=== PATIENT | female | born 1935 | race Caucasian/White ===

== ENCOUNTER → 2016-11-14 | Outpatient (CLI) | payer OTHER | END | disposition home or self-care (01) | LOC: C.LAB1850 16:26 | PROVIDERS: ATTEND Internal Medicine | DX: H81.09 Meniere's disease, unspecified ear (principal) ==

== ENCOUNTER → 2017-06-23 | Outpatient (CLI) | payer OTHER ==
[2017-06-23 13:27] LABS: BASO % 0.6 %; BASO ABS # 0.06 K/uL (0-0.2); EOS % 2.9 %; EOS ABS # 0.28 K/uL (0-0.5); HEMATOCRIT 44.7 % (37-47); IG# 0.03 K/uL (0.00-0.02); LYMPH % 23.8 %; LYMPH ABS # 2.27 K/uL (1.2-3.4); MEAN CELL VOLUME 94.3 fL (80-100); MEAN CORPUSCULAR HEMOGLOBIN 31.6 pg (25-34); MEAN CORPUSCULAR HGB CONC 33.6 g/dl (32-36); MEAN PLATELET VOLUME 9.6 fL (7.4-10.4); MONO % 10.2 %; MONO ABS # 0.97 K/uL (0.11-0.59); NEUT % 62.2 %; NEUT ABS # 5.91 K/uL (1.4-6.5); PLATELET COUNT 241 K/uL (130-400); RED CELL DISTRIBUTION WIDTH CV 14.3 % (11.5-14.5); RED CELL DISTRIBUTION WIDTH SD 49.1 fL (36.4-46.3); WHITE BLOOD COUNT 9.52 K/uL (4.8-10.8)
[2017-06-23 13:46] LABS: HEMOGLOBIN A1C 6.1 % (4.5-5.6)
[2017-06-23 14:00] LABS: ALBUMIN 3.9 gm/dl (3.4-5.0); ALT/SGPT 26 U/L (12-78); AST/SGOT 20 U/L (15-37); BLOOD UREA NITROGEN 16 mg/dl (7-18); CALCIUM 9.3 mg/dl (8.5-10.1); CARBON DIOXIDE 29 mmol/L (21-32); CHOLESTEROL 232 mg/dl (0-200); CREATININE 1.16 mg/dl (0.60-1.20); GLUCOSE 95 mg/dl (70-99); POTASSIUM 3.9 mmol/L (3.5-5.1); SODIUM 139 mmol/L (136-145)
[2017-06-23 14:11] LABS: ALKALINE PHOSPHATASE 62 U/L (45-117); LDL CHOLESTEROL CALCULATED 129 mg/dl; TOTAL PROTEIN 7.8 gm/dl (6.4-8.2)
[2017-06-23 15:05] LABS: CREATININE RANDOM URINE 76.4 mg/dl
== END | disposition home or self-care (01) ==
LOC: C.LAB1850 12:33
PROVIDERS: ATTEND Internal Medicine
DX: E11.9 Type 2 diabetes mellitus without complications (principal); I10 Essential (primary) hypertension; E03.9 Hypothyroidism, unspecified

== ENCOUNTER 2018-06-18 09:27 | Observation (INO) ==
--- NOTE | 2018-06-03 12:16 | Anesthesiology Consultation ---
Date of Service June 03, 2018 Assessment & Plan (1) Encounter for pre-operative examination: Chart Review Chart Review: Acceptable Risk for Surgery and Patient seen in Pre Admission Testing Teaching & Discussion Instructed NPO after midnight before surgery, except medications with 15 cc of water. Medication instructions provided according to the PAT guidelines. History Surgery Operation Date: 06/18/18 09:20 Proposed Procedures p Right Breast Modified Radical Mastectomy - Ezio Miller, Height/Weight Height: 5 ft 5 in Weight: 111.2 kg Allergies Allergy/AdvReac Type Severity Reaction Status Date / Time bacitracin Allergy Hives Verified 06/01/18 13:44 [From Triple Antibiotic] hydrocodone Allergy Hives Verified 06/01/18 13:44 neomycin Allergy Hives Verified 06/01/18 13:44 [From Triple Antibiotic] polymyxin B Allergy Hives Verified 06/01/18 13:44 [From Triple Antibiotic] rosuvastatin [From Crestor] Allergy Hives Verified 06/01/18 13:45 tramadol Allergy Hives Verified 06/01/18 13:44 adhesive tape AdvReac Intermediate Rash Unverified 06/01/18 13:42 aspirin AdvReac Intermediate Gastrointestinal Unverified 06/01/18 13:42 Upset blue dye AdvReac Unknown Hives Unverified 06/01/18 13:42 Medications Home Medications Medication Instructions Recorded Confirmed Last Taken diphenhydramine HCl 25 mg PO HS PRN 06/01/18 06/01/18 Unknown levothyroxine 125 mcg PO QAM 06/01/18 06/01/18 Unknown lisinopril 10 mg PO QAM 06/01/18 06/01/18 Unknown meclizine 25 mg PO QAM 06/01/18 06/01/18 Unknown Past Medical History Medical History Hypothyroid Morbid obesity Breast cancer right Depression Hearing deficit Hx of diabetes mellitus No longer treated for, diet controlled. Hypertension Vertigo r/t [place]ie[place] Past Family History Family History Other Family history non-contributory Past Surgical History Surgical History History of cataract surgery Hx of appendectomy Past Anesthesia History No Hx of Anesthesia Complications and No Family Hx of Anesthesia Complications History of PONV No Motion Sickness Screening History of Motion Sickness: No Social History Smoking Status: Never smoker Do You Dip or Chew Tobacco: No Hx Alcohol Use: No Hx Substance Use: No Exercise / Class Metabolic Activity II 4-5 Yardwork/Stairs/Walk up hill (Does full FOS at home multiple times daily without limiting CP or SOB) Review of Systems Pt denies any recent chest pain, shortness of breath, palpitations, cough, fever or URI. Physical Exam Vital Signs BP: 128/78 P: 72bpm SPO2: 96% RA T: 98.2 F R: 16 Constitutional + obese ENMT Mouth: + dental restorations (upper denture) and + edentulous Thyromental Distance: < 3.5 Finger Breadths Mallampati Class: III Neck normal visual inspection, + thick neck and + limited neck extension (mildly) Respiratory normal respiratory effort Auscultation: lungs clear to auscultation bilaterally Cardiovascular Rate/Rhythm: regular rate and regular rhythm Heart Sounds: no murmur Vessels: no carotid bruit Extremities: no edema Testing Electrocardiogram Date: 11/08/17 Findings: + NSR @ (90) Chest X-Ray Date: 11/08/17 Findings: + NAD Laboratory Results Laboratory Tests 05/28/18 05/28/18 14:29 14:29 WBC 7.39 Hgb 14.6 Hct 43.3 Plt Count 201 Sodium 140 Potassium 3.9 Chloride 106 Carbon Dioxide 31 BUN 15 Creatinine 0.96 Glucose 95
--- NOTE | 2018-06-03 12:22 | PAT Medication Instructions ---
Medication Instructions Date of Service June 03, 2018 Home Medications diphenhydramine HCl 25 mg PO HS PRN levothyroxine 125 mcg PO QAM lisinopril 10 mg PO QAM meclizine 25 mg PO QAM DO NOT take the morning of surgery lisinopril 10 mg PO QAM meclizine 25 mg PO QAM Take morning of surgery With a small sip of water, OTHERWISE NOTHING TO EAT OR DRINK AFTER MIDNIGHT: levothyroxine 125 mcg PO QAM meclizine 25 mg PO QAM Take evening before surgery diphenhydramine HCl 25 mg PO HS PRN (if needed) Other Notes If you have any questions please call us at [phone] or [phone] or [phone] or [phone]
[~2018-06-18 09:27] MED LIST: CEFAZOLIN 2000MG 2,000 MG/15 ML SYR IV SCH; LR 15ML/HR IV SCH
[2018-06-18] MEDS ORDERED: fentaNYL citrate 100 MCG/2 ML VIAL ONE ×2 (10:55→12:14)
[2018-06-18] MEDS ORDERED: ePHEDrine sulfate 50 MG/ML AMP IV PRN (11:00)
[2018-06-18] MEDS ORDERED: fentaNYL citrate 100 MCG/2 ML VIAL IV PRN (11:00)
[2018-06-18] MEDS ORDERED: PHENYLEPHRINE 100MCG/ML 5ML SYR IV PRN (11:00)
[2018-06-18] MEDS ORDERED: ONDANSETRON INJ 2 MG/ML 2 ML VIAL IV PRN ×2 (11:00→14:40)
[2018-06-18] MEDS ORDERED: ATROPINE SULFATE 0.1 MG/ML 10ML SYR IV PRN (11:00)
--- NOTE | 2018-06-18 11:39 | History & Physical Bridge Note ---
Date of Service June 18, 2018 History & Physical Bridge Note I have examined the patient, reviewed the History & Physical and in the interval since the performance of the History & Physical I have noted the following changes of clinical significance: no changes noted
[2018-06-18] MEDS ORDERED: DEXAMETHASONE SOD INJ 4 MG/ML VIAL ONE (12:14)
[2018-06-18] MEDS ORDERED: ONDANSETRON INJ 2 MG/ML 2 ML VIAL ONE (12:14)
[2018-06-18] MEDS ORDERED: ROCURONIUM BROMIDE 10 MG/ML 5 ML VIAL ONE (12:14)
[2018-06-18] MEDS ORDERED: LIDOCAINE HCL 2% 2 ML VIAL/AMP(20MG/ML) INFIL ONE (12:14)
[2018-06-18] MEDS ORDERED: PROPOFOL IV EMULSION 10 MG/ML 20 ML VIAL IV ONE (12:14)
[2018-06-18] MEDS ORDERED: TISSEEL FIBRIN SEALANT 10ML TOP ONE (12:17)
[2018-06-18] MEDS ORDERED: ARISTA ABSORBABLE HEMOSTAT 3GM TOP ONE (12:41)
--- NOTE | 2018-06-18 13:17 | Post Operative Brief Note ---
Immediate Post Op Note v1 Date of Surgery June 18, 2018 Pre & Post Diagnosis Operation Date: 06/18/18 11:30 Pre-Op Diagnosis: Right Breast Cancer, Diabetes Procedure Operation Date: 06/18/18 11:30 Actual Procedures p Right Breast Modified Radical Mastectomy(Right) - Ezio Miller DO Surgeon Ezio Miller DO Manager Business Systems thomas Veloz, thomas Peraza Estimated Blood Loss 25 Findings Consistent with Post-Op Diagnosis Drains Cooper Catheter and Eric-Avina Drain (10 flat)
--- NOTE | 2018-06-18 13:22 | Operative Report ---
Post Operative Report Pre & Post Diagnosis Operation Date: 06/18/18 11:30 Pre-Op Diagnosis: Right Breast Cancer, Diabetes Procedure Operation Date: 06/18/18 11:30 Actual Procedures p Right Breast Modified Radical Mastectomy(Right) - Ezio Miller DO Surgeon Ezio Miller DO Chief School Finance Officer thomas Veloz, thomas Peraza Estimated Blood Loss 25 Findings Consistent with Post-Op Diagnosis Specimens right breast/axillary contents Description of Procedure After informed consent was obtained the patient was taken the operating room placed in supine position. After successful intubation the right arm was extended. Entire right upper chest wall upper abdomen right arm and right axilla were sterilely prepped and draped in usual fashion. I began by using a 10 blade scalpel to make a wide ellipse around the breast starting at the sternal edge and coming around into the the axilla. We used cautery to create skin flaps superiorly and inferiorly. We continued to use traction countertraction and cautery to perform the dissection. We created a superior flap up to the clavicle and an inferior flap down to the inframammary fold. We continued working from medial to lateral cauterizing the small blood vessels and tying off the larger ones. Eventually we got into the axilla and continued to dissect deep to the axillary fascia. We continued laterally to the latissimus dorsi and superiorly to the axillary vein. We used primarily blunt dissection in the axilla with small amounts of cautery. We did have anesthesia reversed the paralytic and we encountered very little nerve activity during our dissection. Eventually we were able to get the axillary dissection completed and that specimen was sent with the breast tissue. We did pari the breast such that 2 short sutures marked superior 1 long suture hanson lateral and 2 long sutures marked posterior. We thoroughly irrigated all the raw surfaces. We were able to obtain complete hemostasis. We placed Tisseel sealant as well as Marlin powder on all the raw surfaces to help prevent hematoma and seroma formation. A 10 flat Eric-Avina drain was also placed into the wound bed and brought out through a separate stab incision and secured using 2-0 nylon. The wound was then closed in multiple layers using 0 Vicryl for deep layers 2-0 Vicryl for mid layers and 3-0 Monocryl for skin. Benzoin and Steri-Strips gauze and tape were used for dressing. The patient was awaken extubated and transferred recovery in stable condition. My physician's ortho assistant assisted through the entire case. They help with prepping the patient. They helped with retraction during my dissection as well as with wound closure and dressing placement. I attest to the content of the Intraoperative Record and any orders documented therein. Any exceptions are noted below.
[2018-06-18] MEDS ORDERED: NEOSTIGMINE METHYLSULFATE 5 MG/5 ML SYR ONE (13:37)
[2018-06-18] MEDS ORDERED: GLYCOPYRROLATE 0.2 MG/ML VIAL ONE (13:37)
--- NOTE | 2018-06-18 14:20 | Anesthesiology Progress Note ---
Date of Service June 18, 2018 Anesthesia Post Procedure Vital Signs Vital Signs: Temp Pulse Pulse Resp BP BP Pulse Ox 06/18/18 14:10 60 18 187/78 H 100 06/18/18 14:00 60 18 178/67 H 100 06/18/18 13:50 60 18 165/89 H 100 06/18/18 13:41 36.5 C 73 18 169/79 H 100 06/18/18 09:54 37.2 C 88 20 189/88 H 97 Notes Mental Status: alert / awake / arousable Patient Amnestic to Procedure: Yes Nausea / Vomiting: adequately controlled Pain: adequately controlled Airway Patency, RR, SpO2: stable & adequate BP & HR: stable & adequate Hydration State: stable & adequate Anesthetic Complications: no major complications apparent Notes: Doing well. BP at baseline. VSS.
[2018-06-18] MEDS ORDERED: HYDROmorphone INJ 0.5 MG/0.5 ML SYR IV PRN (14:40)
[2018-06-18] MEDS ORDERED: ACETAMINOPHEN 325 MG TAB PO PRN (14:40)
[2018-06-18] MEDS: LACTATED RINGER'S 1,000 ML IV SCH (15:50)
[2018-06-19] MEDS ORDERED: LEVOTHYROXINE SODIUM 125 MCG TABLET PO SCH (06:30)
--- NOTE | 2018-06-19 07:49 | Anesthesiology Progress Note ---
Date of Service June 19, 2018 Anesthesia Post Procedure Vital Signs Vital Signs: Temp Pulse Pulse Resp BP BP Pulse Ox 06/19/18 07:29 36.7 C 71 18 123/71 93 06/19/18 04:07 37 C 70 16 130/71 93 06/18/18 23:22 37.4 C 75 16 149/88 H 93 06/18/18 19:38 36.6 C 78 20 158/77 H 98 06/18/18 17:46 37.1 C 71 18 159/76 H 94 06/18/18 16:45 36.5 C 64 20 167/75 H 97 06/18/18 15:45 36.5 C 64 20 169/78 H 94 06/18/18 15:08 36.5 C 64 20 178/83 H 98 06/18/18 14:45 36.8 C 61 18 170/77 H 98 06/18/18 14:30 36.4 C L 60 18 177/71 H 100 06/18/18 14:20 58 L 18 182/77 H 100 06/18/18 14:10 60 18 187/78 H 100 06/18/18 14:00 60 18 178/67 H 100 06/18/18 13:50 60 18 165/89 H 100 06/18/18 13:41 36.5 C 73 18 169/79 H 100 06/18/18 09:54 37.2 C 88 20 189/88 H 97 Pain Intensity Right Chest: Pain Intensity: 1 Notes Mental Status: alert / awake / arousable and participated in evaluation Patient Amnestic to Procedure: Yes Nausea / Vomiting: adequately controlled Pain: adequately controlled Airway Patency, RR, SpO2: stable & adequate BP & HR: stable & adequate Hydration State: stable & adequate Anesthetic Complications: no major complications apparent and Pt Satisfied with anesthetic care
[2018-06-19] MEDS ORDERED: MECLIZINE HCL 25 MG TAB PO SCH (09:00)
[2018-06-19] MEDS ORDERED: LISINOPRIL 10 MG TAB PO SCH (09:00)
[2018-06-19] MEDS: LACTATED RINGER'S 1,000 ML IV SCH (11:00)
--- NOTE | 2018-06-19 12:49 | Surgery Progress Note ---
Date of Service June 19, 2018 Assessment & Plan (1) Breast cancer: pod 1 doing very well wants to go home ok for d/c. instructions given. f/u wed for poss drain removal. Subjective feeling well. denies pain edinson diet Physical Exam Vital Signs (Past 24 Hours): Last Vital Signs Temp 36.7 C 06/19/18 07:29 Pulse 71 06/19/18 07:29 Resp 18 06/19/18 07:29 BP 123/71 06/19/18 07:29 Pulse Ox 93 06/19/18 07:29 Physical Exam: alert/oriented. nad keke serous good ROM with RUE. minimal upper extremity edema b/l
[2018-06-19 12:57] VITALS: BP 140/62; TEMP 98.2; O2SAT 95
[2018-06-19 13:21] VITALS: PULSE 71
--- NOTE | 2018-06-22 10:50 | Discharge Summary ---
Date of Service June 22, 2018 Admission HPI Per Admitting Provider Ms. Oakes is an 82-year-old female who was admitted for observation following scheduled Right Breast modified radical mastectomy with Dr. Miller. Operation Date: 06/18/18 11:30 Pre-Op Diagnosis: Right Breast Cancer, Diabetes Procedure Operation Date: 06/18/18 11:30 Actual Procedures p Right Breast Modified Radical Mastectomy Principal Diagnosis Right Breast Cancer, Diabetes Discharge Data Allergies Allergy/AdvReac Type Severity Reaction Status Date / Time bacitracin Allergy Intermediate Hives Verified 06/18/18 09:51 [From Triple Antibiotic] hydrocodone Allergy Intermediate Hives Verified 06/18/18 09:51 neomycin Allergy Intermediate Hives Verified 06/18/18 09:51 [From Triple Antibiotic] polymyxin B Allergy Intermediate Hives Verified 06/18/18 09:51 [From Triple Antibiotic] rosuvastatin [From Crestor] Allergy Intermediate Hives Verified 06/18/18 09:51 tramadol Allergy Intermediate Hives Verified 06/18/18 09:51 adhesive tape AdvReac Intermediate Rash Verified 06/18/18 09:51 blue dye AdvReac Intermediate Hives Verified 06/18/18 09:51 aspirin AdvReac Mild Gastrointestinal Verified 06/18/18 09:51 Upset Procedures Performed Operation Date: 06/18/18 11:30 Actual Procedures p Right Breast Modified Radical Mastectomy(Right) - Ezio Miller, Hospital Course (1) Breast cancer: Pre-Op Diagnosis:Right Breast Cancer Post-Op Diagnosis- Right Breast Cancer Actual Procedures p Right Breast Modified Radical Mastectomy 10 flat KIM drain placed intraoperatively. POD# 1 doing very well wants to go home ok for d/c. return precautions reviewed. Both verbal and written discharge instructions provided. Patient to follow-up in General Surgery clinic for evaluation and drain removal. All questions answered. Total Time Total Time Spent Total Time Spent (In Minutes): 5 Discharge Plan Discharge Items Patient Disposition: Home - Self-Care Reason For Visit: Right Breast Cancer, Diabetes Discharge Diagnosis: mastectomy Discharge Goals: Decrease discomfort Activity: Per 'Additional Instructions' section Bathing: Keep incision dry Bathing Comment: sponge bath until drain removed Non-emergency contact: Surgeon Call non-emergency contact if: you have any medication questions, your pain is not controlled, you have a fever, your temperature is above 101.5, your wound has increased redness and your wound has increased drainage Follow-up/Referrals: Alice Monroy MD [Primary Care Provider] - Ezio Miller, DO [Surgeon] - (Call to make an appt in 5-7 days) Diet: Regular Addtl Provider Instructions: Empty drain 2-3 times daily, measure & record total drainage for each day You can take Tylenol or ibuprofen as needed for pain Prescriptions: Continued diphenhydramine HCl 25 mg Tablet 25 mg PO HS PRN (Reason: hives) RF: 0 lisinopril 20 mg Tablet 10 mg PO QAM RF: 0 meclizine 25 mg Tablet 25 mg PO QAM RF: 0 levothyroxine 125 mcg Capsule 125 mcg PO QAM RF: 0 Stand-Alone Forms: [facility], [facility] Discharge Orders: Discharge Order (Routine); Ordered 06/19/18 Ordered By: Dom Veloz Jr Admission Data Admit Date/Time: 06/18/18 13:55 Attending Provider: Ezio Miller Admit Provider: Ezio Miller Primary Care Provider: Alice Monroy V. Service: Surgical Services Other Interventions: Discharge Summary Assessment (RN) Last Done: 06/19/18 13:19 DC Date/Time DO NOT enter until pt leaves facility: 06/19/18 14:44
== END 2018-06-19 14:44 | disposition home or self-care (01) ==
LOC: 3N 09:27 → ASU 09:27

== ENCOUNTER 2022-05-04 07:02 | Inpatient (IN) ==
[2022-05-04] MEDS ORDERED: ONDANSETRON INJ 2 MG/ML 2 ML VIAL IV STA (07:07)
[2022-05-04] MEDS ORDERED: SODIUM CHLORIDE 0.9% 500 ML IV SCH (07:15)
[2022-05-04] MEDS ORDERED: CEFEPIME 2,000 MG/20 ML VIAL IV STA (07:21)
--- NOTE | 2022-05-04 07:25 | Emergency Department Note ---
Impression & Plan Hypoxia, Elevated lactic acid level, Weakness, Vomiting ED Provider Note NAME: TORRES COOL AGE: 86 SEX: F : 1935 ARRIVES VIA: Ambulance INFORMANT: [Patient][ems, nursing, family] ED PROVIDER(S): [Kiran Vick MD] CHIEF COMPLAINT: Nausea, weakness HISTORY OF PRESENT ILLNESS: The patient is an 86-year-old female who was somewhat weak yesterday but otherwise okay. This morning, she woke up with increased weakness to the point where she cannot function. She had nausea and vomiting and chills. She denies any cough or congestion or shortness of breath. No chest pain or abdominal pain. No diarrhea or urinary complaints. She was brought by EMS because of her situation. PMHx/PSHx: See Below SOCIAL HISTORY: See Below. PHYSICAL EXAM: GENERAL: Patient is in no acute distress. HEENT: No acute trauma, normocephalic atraumatic, mucous membranes moist, no nasal congestion. NECK: No stridor, no adenopathy, no meningismus, trachea is midline. LUNGS: Clear to auscultation bilaterally, no wheeze, no rhonchi, breath sounds equal. HEART: Without murmurs gallops or rubs, regular rate and rhythm. ABDOMEN: Soft, nontender, bowel sounds positive, no peritonitis. EXTREMITIES: No cyanosis or edema, full range of motion of all the joints without pain or difficulty, no signs for acute trauma. NEUROLOGIC: Oriented x 3, no acute motor or sensory deficits, no focal weakness. SKIN: No rash, no jaundice, no diaphoresis. DIFFERENTIAL DIAGNOSIS: Sepsis or bacteremia, UTI, pneumonia, dehydration, electrolyte imbalance, foodborne or viral illness, COVID-19, influenza, among others. EMERGENCY DEPARTMENT COURSE/PROCEDURES: Prior/Outside records reviewed: EMS documentation. ECG per my interpretation: Indication was weakness. The ECG shows a normal sinus rhythm with a rate of 93. There is some diffuse nonspecific ST change. There is no ST elevation, no PVCs. The QTc is 474. Continuous Cardiac Monitoring per my interpretation: An order was placed for continuous cardiac monitoring. The monitor shows a rate of 91 with normal sinus rhythm. Critical Care Note: I have personally spent 43 minutes of critical care time in the direct management of this patient. This includes bedside care, interpretation of diagnostic studies, and testing, discussion with consultants, patient, and family members, and other required patient management activities. This 43 minutes is in excess of all separately billable procedures. MEDICAL DECISION MAKING: There is no leukocytosis or concerning anemia. There is a normal platelet count. No renal failure. Lactic acid level was elevated consistent with potential dehydration and/or sepsis. Magnesium was low at 1.6. There was no liver enzyme elevation. The patient's TSH was high however, the T4 was normal. Urinalysis did not show obvious infection. COVID, influenza and RSV test were negative. Chest x-ray per my review did not show pneumonia or CHF. On exam, the patient appeared a bit washed out and weak. She became hypoxic during her ED stay and was requiring O2 supplementation. She had no complaints of chest or abdominal pain. Patient received IV saline, 1.5 L. She was given IV Zofran for nausea. She received IV magnesium. She was given IV cefepime as empiric antibiotic coverage. Patient presents with vomiting. She became hypoxic here in the ED so aspiration was a concern. She has an elevated lactic acid level. Certainly, sepsis is a consideration although I currently have no obvious source. I do think the patient requires a hospital stay. I spoke with case management, I spoke with the family, the on-call hospitalist was consulted DISPOSITION: Patient's findings and presentation warrant a hospital stay. Past Med/Surg History Medical History Breast cancer right Depression Hearing deficit Hx of diabetes mellitus No longer treated for, diet controlled. Hypertension Hypothyroid Morbid obesity Vertigo r/t [place] Surgical History History of cataract surgery Hx of appendectomy Hx of mastectomy (06/18/18) Family History Father No problems noted. Mother No problems noted. Sister Age: 89 Breast cancer Brother Heart disease Cardiac disorder Son Age: 69 Primary cancer of tonsil Heart disease Daughter Age: 64 Diabetes Denies family history of Ovarian cancer Prostate cancer Colorectal cancer Social History Smoking Status: Never smoker Second Hand Exposure: No; Hx Alcohol Use: No Hx Substance Use: No Preferred Language: Bulgarian Communication Ability: Effective Visual Impairment: No Limitations Hearing Ability: Hard of Hearing [employer] Required: No Beliefs That Will Affect Care: None marital status: Current Living Situation: Family current occupational status: retired Feels Safe at Home: Yes Physical Activity Frequency: 1-2 Times per Week Seatbelt Use: always Assistive Devices: Cane and Walker Allergies Allergies Allergy/AdvReac Type Severity Reaction Status Date / Time bacitracin Allergy Intermediate Hives Verified 05/04/22 09:20 [From Triple Antibiotic] hydrocodone Allergy Intermediate Hives Verified 05/04/22 09:20 neomycin Allergy Intermediate Hives Verified 05/04/22 09:20 [From Triple Antibiotic] polymyxin B Allergy Intermediate Hives Verified 05/04/22 09:20 [From Triple Antibiotic] rosuvastatin [From Crestor] Allergy Intermediate Hives Verified 05/04/22 09:20 tramadol Allergy Intermediate Hives Verified 05/04/22 09:20 amoxicillin Allergy Mild hives on Verified 05/04/22 09:20 tongue adhesive tape AdvReac Intermediate Rash Verified 05/04/22 09:20 blue dye AdvReac Intermediate Hives Verified 05/04/22 09:20 aspirin AdvReac Mild Gastrointestinal Verified 05/04/22 09:20 Upset acetaminophen AdvReac Verified 01/04/22 11:07 diclofenac [From Voltaren] AdvReac Verified 01/04/22 11:07 NSAIDS (Non-Steroidal AdvReac Verified 01/04/22 11:07 Anti-Inflamma Home Meds Home Medications Medication Instructions Recorded Confirmed diphenhydramine HCl 25 mg tablet 25 mg PO BID PRN hives 06/01/18 05/04/22 vitamin E (dl, acetate) 90 mg (200 90 mg PO BID 01/04/22 05/04/22 unit) capsule meclizine 25 mg tablet 25 mg PO QAM 05/04/22 05/04/22 metformin 500 mg tablet,extended 1,000 mg PO BID 05/04/22 05/04/22 release 24 hr Previous Rx's Medication Instructions Recorded blood-glucose meter ([facility] [facility] 911Touch #1 ea 08/31/21 Ultra2 Meter kit) lancets 30 gauge (OneTouch [employer] #100 ea 08/31/21 Lancets) Oxygen Home #1 ea 09/21/21 amlodipine 2.5 mg tablet 2.5 mg PO DAILY #90 tabs 09/28/21 anastrozole 1 mg tablet 1 mg PO DAILY #90 tabs 09/28/21 blood sugar diagnostic (OneTouch #100 ea 10/09/21 Ultra Test strips) cetirizine 10 mg tablet 10 mg PO DAILY #90 tabs 11/15/21 levothyroxine 150 mcg tablet 150 mcg PO DAILY #90 tabs 11/23/21 Results & Data (ED) Vital Signs Vital Signs - 24 hr 05/04/22 07:12 05/04/22 07:24 05/04/22 07:52 Temperature 36.6 C Temperature Source Oral Pulse Rate 91 H 90 Pulse Rate [Apical] 79 Respiratory Rate 20 18 Respiratory Effort / Characteristics Non-Labored Spontaneous Non-Labored Spontaneous Respiratory Depth Normal Normal Blood Pressure 198/112 H Blood Pressure [Left Arm] 176/81 H Blood Pressure Mean 140 Blood Pressure Mean [Left Arm] 112 Pulse Oximetry 94 94 Oxygen Delivery Method Room Air Room Air Sepsis Recent Fever Within 48 Hours No Sepsis New/Unexplained Change in Mental Status No Sepsis Action Taken by Nursing No Action Required Oxygen Flow Rate - Titration Pulse Oximetry Post Tiitration 05/04/22 08:26 05/04/22 08:49 Temperature Temperature Source Pulse Rate Pulse Rate [Apical] 82 Respiratory Rate 18 Respiratory Effort / Characteristics Respiratory Depth Blood Pressure Blood Pressure [Left Arm] 161/75 H Blood Pressure Mean Blood Pressure Mean [Left Arm] 103 Pulse Oximetry 94 84 L Oxygen Delivery Method Room Air Room Air Sepsis Recent Fever Within 48 Hours Sepsis New/Unexplained Change in Mental Status Sepsis Action Taken by Nursing Oxygen Flow Rate - Titration 2 Pulse Oximetry Post Tiitration 97 Home Medications Current Medication List: was personally reviewed by me Laboratory Data Attestation: I reviewed the patient's lab results. 05/04/22 07:16 05/04/22 07:16 Lab Results 05/04/22 05/04/22 05/04/22 Range/Units 07:16 07:16 07:16 WBC 6.43 (4.8-10.8) K/ul RBC 4.62 (4.20-5.40) M/uL Hgb 14.5 (12.0-16.0) g/dl Hct 43.0 (37.0-47.0) % MCV 93.1 (80.0-100.0) fL MCH 31.4 (25.0-34.0) pg MCHC 33.7 (32.0-36.0) g/dL RDW Std Deviation 48.0 H (36.4-46.3) fL RDW Coeff of Thierry 14.1 (11.5-14.5) % Plt Count 167 (130-400) K/uL MPV 9.4 (9.4-12.4) fL Immature Gran % (Auto) 0.5 % Neut % (Auto) 65.1 % Lymph % (Auto) 15.6 % Hale % (Auto) 10.7 % Eos % (Auto) 7.2 % Baso % (Auto) 0.9 % Neut # (Auto) 4.19 (1.40-6.50) K/uL Lymph # (Auto) 1.00 L (1.2-3.4) K/uL Hale # (Auto) 0.69 H (0.11-0.59) K/uL Eos # (Auto) 0.46 (0-0.50) K/uL Baso # (Auto) 0.06 (0-0.2) K/uL Immature Gran # (Auto) 0.03 (0.01-0.20) K/uL Sodium 139 (136-145) mmol/L Potassium 3.9 (3.5-5.1) mmol/L Chloride 101 (98-107) mmol/L Carbon Dioxide 31 (21-32) mmol/L Anion Gap 7 (3-11) BUN 18 (6-23) mg/dl Creatinine 0.87 (0.6-1.2) mg/dl Est Cr Clr Drug Dosing 56.6 ml/min Est GFR ( Amer) 69.4 ml/min Est GFR (Non-Af Amer) 59.9 ml/min BUN/Creatinine Ratio 20.7 H (10-20) Glucose 163 H (70-99(Fasting)) mg/dl Lactate 3.1 H* (0.4-2.0) mmol/L Calcium 9.8 (8.5-10.1) mg/dl Magnesium 1.6 L (1.7-2.4) mg/dl Total Bilirubin 0.4 (0.2-1.0) mg/dl AST 17 (13-39) U/L ALT 14 (7-52) U/L Alkaline Phosphatase 68 (34-104) U/L Troponin I High Sens 4.4 (0-14) pg/ml Total Protein 8.2 (6.0-8.3) gm/dl Albumin 4.2 (3.4-5.0) gm/dl Globulin 4.0 (2.5-4.0) gm/dl Albumin/Globulin Ratio 1.1 (0.9-2) TSH (0.300-4.500) uIu/ml Free T4 (0.61-1.60) ng/dl Urine Color Urine Appearance (Clear) Urine pH (4.5-7.5) Ur Specific Erie (1.000-1.030) Urine Protein (Negative) Urine Glucose (UA) (Negative) Urine Ketones (Negative) Urine Blood (Negative) Urine Nitrite (Negative) Urine Bilirubin (Negative) Urine Urobilinogen (Negative) Ur Leukocyte Esterase (Negative) Urine WBC (Auto) (0-5) /hpf Urine RBC (Auto) (0-4) /hpf U Hyaline Cast (Auto) (0-5) /lpf U Epithel Cells (Auto) (0-5) /lpf Urine Bacteria (Auto) (Negative) SARS-CoV-2 (PCR) (Negative) Influenza Type A (PCR) (Neg) Influenza Type B (PCR) (Neg) RSV (RT-PCR) (Neg) 05/04/22 05/04/22 05/04/22 Range/Units 07:16 07:26 08:00 WBC (4.8-10.8) K/ul RBC (4.20-5.40) M/uL Hgb (12.0-16.0) g/dl Hct (37.0-47.0) % MCV (80.0-100.0) fL MCH (25.0-34.0) pg MCHC (32.0-36.0) g/dL RDW Std Deviation (36.4-46.3) fL RDW Coeff of Thierry (11.5-14.5) % Plt Count (130-400) K/uL MPV (9.4-12.4) fL Immature Gran % (Auto) % Neut % (Auto) % Lymph % (Auto) % Hale % (Auto) % Eos % (Auto) % Baso % (Auto) % Neut # (Auto) (1.40-6.50) K/uL Lymph # (Auto) (1.2-3.4) K/uL Hale # (Auto) (0.11-0.59) K/uL Eos # (Auto) (0-0.50) K/uL Baso # (Auto) (0-0.2) K/uL Immature Gran # (Auto) (0.01-0.20) K/uL Sodium (136-145) mmol/L Potassium (3.5-5.1) mmol/L Chloride (98-107) mmol/L Carbon Dioxide (21-32) mmol/L Anion Gap (3-11) BUN (6-23) mg/dl Creatinine (0.6-1.2) mg/dl Est Cr Clr Drug Dosing ml/min Est GFR ( Amer) ml/min Est GFR (Non-Af Amer) ml/min BUN/Creatinine Ratio (10-20) Glucose (70-99(Fasting)) mg/dl Lactate (0.4-2.0) mmol/L Calcium (8.5-10.1) mg/dl Magnesium (1.7-2.4) mg/dl Total Bilirubin (0.2-1.0) mg/dl AST (13-39) U/L ALT (7-52) U/L Alkaline Phosphatase (34-104) U/L Troponin I High Sens (0-14) pg/ml Total Protein (6.0-8.3) gm/dl Albumin (3.4-5.0) gm/dl Globulin (2.5-4.0) gm/dl Albumin/Globulin Ratio (0.9-2) TSH 18.049 H (0.300-4.500) uIu/ml Free T4 0.97 (0.61-1.60) ng/dl Urine Color Yellow Urine Appearance Clear (Clear) Urine pH 5.0 (4.5-7.5) Ur Specific [place] 1.015 (1.000-1.030) Urine Protein 2+ H (Negative) Urine Glucose (UA) Negative (Negative) Urine Ketones Negative (Negative) Urine Blood 1+ H (Negative) Urine Nitrite Negative (Negative) Urine Bilirubin Negative (Negative) Urine Urobilinogen Negative (Negative) Ur Leukocyte Esterase Negative (Negative) Urine WBC (Auto) 1-5 (0-5) /hpf Urine RBC (Auto) 0-4 (0-4) /hpf U Hyaline Cast (Auto) 1-5 (0-5) /lpf U Epithel Cells (Auto) 10-20 H (0-5) /lpf Urine Bacteria (Auto) Negative (Negative) SARS-CoV-2 (PCR) NEGATIVE (Negative) Influenza Type A (PCR) Negative (Neg) Influenza Type B (PCR) Negative (Neg) RSV (RT-PCR) Negative (Neg) Administered Medications Amlodipine Besylate (Amlodipine Besylate 5 Mg Tab) 5 mg PO DAILY JEREL Stop: 06/03/22 14:29 Last Admin: 05/04/22 14:47 Dose: 5 mg Documented By: RACIEL Discontinued Medications Amlodipine Besylate (Amlodipine Besylate 5 Mg Tab) 2.5 mg PO DAILY JEREL Stop: 06/03/22 10:58 Last Admin: 05/04/22 11:48 Dose: 2.5 mg Documented By: RACIEL Sodium Chloride (Nss) 500 mls @ 999 mls/hr IV .Q31M JEREL Stop: 05/04/22 07:45 Last Infusion: 05/04/22 08:00 Dose: 0 mls/hr Documented By: Admin: 05/04/22 07:25 Dose: 999 mls/hr Documented By: JAMES Cefepime HCl (Maxipime) 2,000 mg in 20 mls @ 5 mls/min IV NOW STA; Protocol Stop: 05/04/22 07:24 Last Admin: 05/04/22 08:04 Dose: 5 mls/min Documented By: JAMES Sodium Chloride (Nss 1000ml) 1,000 mls @ 999 mls/hr IV .Q1H1M ONE Stop: 05/04/22 08:46 Last Infusion: 05/04/22 09:13 Dose: 0 mls/hr Documented By: Admin: 05/04/22 08:09 Dose: 999 mls/hr Documented By: JAMES Magnesium Sulfate/Dextrose (Magnesium Sulfate / D5w) 1 gm in 100 mls @ 100 mls/hr IV NOW STA Stop: 05/04/22 08:54 Last Infusion: 05/04/22 09:23 Dose: 0 mls/hr Documented By: Admin: 05/04/22 08:23 Dose: 100 mls/hr Documented By: JAMES Levothyroxine Sodium (Levothyroxine Sodium 150 Mcg Tablet) 150 mcg PO DAILYBB JEREL Stop: 06/03/22 10:58 Last Admin: 05/04/22 11:48 Dose: 150 mcg Documented By: RACIEL Levothyroxine Sodium (Levothyroxine Sodium 100 Mcg Tablet) 100 mcg PO ONCE ONE Stop: 05/04/22 14:22 Last Admin: 05/04/22 14:47 Dose: 100 mcg Documented By: RACIEL Ondansetron HCl (Ondansetron Inj 2 Mg/Ml 2 Ml Vial) 4 mg IV NOW STA Stop: 05/04/22 07:08 Last Admin: 05/04/22 07:24 Dose: 4 mg Documented By: JAMES Imaging Data Radiologist's Impression: Chest X-Ray 05/04/22 07:07 XR chest 1V portable CLINICAL HISTORY: weakness COMPARISON STUDY: Chest radiograph November 08, 2017. FINDINGS: Lung volumes are at the lower limits of normal. There is no consolidation to suggest pneumonia. Linear left basilar densities favor atelectasis or scarring. There is no pneumothorax or pleural effusion. Cardiac size is normal. Mediastinal contours are normal. There is no evidence for pulmo nary edema. IMPRESSION: No acute cardiopulmonary findings. ACT 112: Negative or not required by law. Electronically signed by: Patricio Jaime M.D. 05/04/2022 7:26 AM Discharge Plan Visit Data Chief Complaint: Nausea Stated Complaint: Vomiting, Weakness ED Provider: Kiran Vick Discharge Problem: Hypoxia, Elevated lactic acid level, Weakness, Vomiting Patient Disposition: Admitted As Inpatient Condition: Fair Discharge Instructions Interventions: ED Discharge Assessment Last Done: 05/04/22 10:14
--- NOTE | 2022-05-04 07:29 | XRay Report ---
XR chest 1V portable CLINICAL HISTORY: weakness COMPARISON STUDY: Chest radiograph November 08, 2017. FINDINGS: Lung volumes are at the lower limits of normal. There is no consolidation to suggest pneumo rishi. Linear left basilar densities favor atelectasis or scarring. There is no pneumothorax or pleural effusion. Cardiac size is normal. Mediastinal contours are normal. There is no evidence for pulmonar y edema. IMPRESSION: No acute cardiopulmonary findings. ACT 112: Negative or not required by law. Electronically signed by: Patricio Jaime M.D. 05/04/2022 7:26 AM
[2022-05-04 07:37] LABS: Basophils # (auto) 0.06 K/uL (0-0.2); Basophils % (auto) 0.9 %; Eosinophils # (auto) 0.46 K/uL (0-0.50); Eosinophils % (auto) 7.2 %; Hemoglobin 14.5 g/dl (12.0-16.0); Immature Granulocytes # (auto) 0.03 K/uL (0.01-0.20); Immature Granulocytes % (auto) 0.5 %; Lymphocytes % (auto) 15.6 %; Mean Corpuscular Hemoglobin 31.4 pg (25.0-34.0); Mean Corpuscular Hgb Conc 33.7 g/dL (32.0-36.0); Mean Corpuscular Volume 93.1 fL (80.0-100.0); Mean Platelet Volume 9.4 fL (9.4-12.4); Monocytes # (auto) 0.69 K/uL (0.11-0.59); Monocytes % (auto) 10.7 %; Neutrophils # (auto) 4.19 K/uL (1.40-6.50); Neutrophils % (auto) 65.1 %; Platelet Count 167 K/uL (130-400); RDW Coefficient of Variation 14.1 % (11.5-14.5); Red Blood Count 4.62 M/uL (4.20-5.40); White Blood Count 6.43 K/ul (4.8-10.8)
[2022-05-04] MEDS ORDERED: SODIUM CHLORIDE 0.9% 1000ML 1,000 ML IV ONE (07:46)
[2022-05-04 07:53] LABS: Albumin Globulin Ratio 1.1 (0.9-2); Albumin Level 4.2 gm/dl (3.4-5.0); BUN Creatinine Ratio 20.7 (10-20); Bilirubin,Total 0.4 mg/dl (0.2-1.0); Calcium 9.8 mg/dl (8.5-10.1); Creatinine Clr Calc Pharmacy 56.6 ml/min; Est GFR (African American) 69.4 ml/min; Est GFR (Non-African American) 59.9 ml/min; Magnesium 1.6 mg/dl (1.7-2.4); Potassium 3.9 mmol/L (3.5-5.1); Total Protein 8.2 gm/dl (6.0-8.3)
[2022-05-04] MEDS ORDERED: MAGNESIUM SULFATE / D5W 1 GM/100 ML BAG IV STA (07:55)
[2022-05-04 07:59] LABS: Troponin I High Sensitivity 4.4 pg/ml (0-14)
[2022-05-04 08:07] LABS: Thyroid Stimulating Hormone 18.049 uIu/ml (0.300-4.500)
[2022-05-04 08:14] LABS: Appearance Urine Clear (Clear); Bacteria Urine Automated Negative (Negative); Bilirubin Urine Negative (Negative); Blood Urine 1+ (Negative); Color Urine Yellow; Glucose Urine UA Negative (Negative); Ketones Urine Negative (Negative); Leukocyte Esterase Urine Negative (Negative); Nitrite Urine Negative (Negative); Protein Urine 2+ (Negative); RBC Urine Automated 0-4 /hpf (0-4); Specific Gravity Urine 1.015 (1.000-1.030); Urobilinogen Urine Negative (Negative)
[2022-05-04 08:20] LABS: Influenza A virus by PCR Negative (Neg); Influenza B virus by PCR Negative (Neg); RSV by PCR Negative (Neg); SARS CoV2 RNA(COVID-19) Ceph NEGATIVE (Negative)
[2022-05-04 08:43] LABS: T4 Free Thyroxine 0.97 ng/dl (0.61-1.60)
--- NOTE | 2022-05-04 10:22 | Electrocardiogram Report ---
Test Reason : Blood Pressure : / mmHG Vent. Rate : 093 BPM Atrial Rate : 093 BPM P-R Int : 184 ms QRS Dur : 084 ms QT Int : 382 ms P-R-T Axes : 067 006 102 degrees QTc Int : 474 ms Poor data quality, interpretation may be adversely affected Normal sinus rhythm Low voltage QRS Nonspecific ST and T wave abnormality Abnormal ECG When compared with ECG of 08-NOV-2017 07:12, No significant change was found Confirmed by Devante Maharaj ([id number]) on 05/04/2022 10:22:09 AM Referred By: Alice Flores Confirmed By:Devante Maharaj
--- NOTE | 2022-05-04 10:50 | History & Physical Report ---
Date of Service May 04, 2022 Assessment & Plan (1) Acute gastritis: Plan: Patient admitted on account of nausea and vomiting. Could be due to acute viral gastritis Continue supportive care, Zofran as needed, IV normal saline (2) Aspiration pneumonia: Plan: On account of vomiting, patient may have aspirated as well, will cover with broad-spectrum antibiotics Initial chest x-ray did not suggest, will follow-up chest x-ray Continue IV cefepime (3) Elevated lactic acid level: Plan: Most likely due to nausea vomiting and also metformin use Patient does not look toxic Continue IV fluid resuscitation Recheck lactic acid However due to vomiting, patient may have aspirated as well, will cover with broad-spectrum antibiotics Await cultures. (4) Malignant neoplasm of upper-outer quadrant of right breast in female, estrogen receptor positive: Plan: We will continue home anastrozole (5) Hypertension: Plan: Blood pressures under fair control Continue home medications (6) Hypothyroidism: Plan: TSH is elevated, no evidence of myxedema We will give an extra dose of Synthroid, patient normally takes 150 mcg daily Given extra dose of 100 (7) Type 2 diabetes mellitus: Plan: Blood glucose under good control Hold metformin Insulin sliding scale (8) Nocturnal hypoxia: Plan: Was admitted with a saturation of 84%. Patient admits to using oxygen at night. Although patient has been vomiting, could be also due to aspiration pneumonia. Chest x-ray did not suggest any way Plan Continue hospitalization DVT heparin Full code History of Present Illness Chief Complaint: weakness, nausea and vomiting Primary Care Provider: Alice Monroy MD Is an 86-year-old female with a history of breast cancer, type 2 diabetes, hypothyroidism who was admitted to the hospital on account of nausea vomiting for couple of days. Most of the history was obtained from patient's family and also from ED physician, according to reports, patient started having nausea and vomiting after a few days of generalized weakness. She was brought to the hospital and upon arrival, was found to be hypoxic on 84%, although patient states she uses oxygen at home 2 L at night. Lactate was elevated 2.5 and chest x-ray was done that did not show any evidence of acute pathology. However on account of persistent nausea and vomiting and weakness, patient will be admitted to the hospital further management. Allergies Allergy/AdvReac Type Severity Reaction Status Date / Time bacitracin Allergy Intermediate Hives Verified 05/04/22 09:20 [From Triple Antibiotic] hydrocodone Allergy Intermediate Hives Verified 05/04/22 09:20 neomycin Allergy Intermediate Hives Verified 05/04/22 09:20 [From Triple Antibiotic] polymyxin B Allergy Intermediate Hives Verified 05/04/22 09:20 [From Triple Antibiotic] rosuvastatin [From Crestor] Allergy Intermediate Hives Verified 05/04/22 09:20 tramadol Allergy Intermediate Hives Verified 05/04/22 09:20 amoxicillin Allergy Mild hives on Verified 05/04/22 09:20 tongue adhesive tape AdvReac Intermediate Rash Verified 05/04/22 09:20 blue dye AdvReac Intermediate Hives Verified 05/04/22 09:20 aspirin AdvReac Mild Gastrointestinal Verified 05/04/22 09:20 Upset acetaminophen AdvReac Verified 01/04/22 11:07 diclofenac [From Voltaren] AdvReac Verified 01/04/22 11:07 NSAIDS (Non-Steroidal AdvReac Verified 01/04/22 11:07 Anti-Inflamma Home Medications Medication Instructions Recorded Confirmed Type diphenhydramine HCl 25 mg tablet 25 mg PO BID PRN hives 06/01/18 05/04/22 History blood-glucose meter ([employer] #1 ea 08/31/21 01/29/22 Rx Ultra2 Meter kit) lancets 30 gauge ([facility] #100 ea 08/31/21 01/29/22 Rx Lancets) Oxygen Home #1 ea 09/21/21 01/29/22 Rx amlodipine 2.5 mg tablet 2.5 mg PO DAILY #90 tabs 09/28/21 05/04/22 Rx anastrozole 1 mg tablet 1 mg PO DAILY #90 tabs 09/28/21 05/04/22 Rx blood sugar diagnostic (OneTouch #100 ea 10/09/21 01/29/22 Rx Ultra Test strips) cetirizine 10 mg tablet 10 mg PO DAILY #90 tabs 11/15/21 05/04/22 Rx levothyroxine 150 mcg tablet 150 mcg PO DAILY #90 tabs 11/23/21 05/04/22 Rx vitamin E (dl, acetate) 90 mg (200 90 mg PO BID 01/04/22 05/04/22 History unit) capsule meclizine 25 mg tablet 25 mg PO QAM 05/04/22 05/04/22 History metformin 500 mg tablet,extended 1,000 mg PO BID 05/04/22 05/04/22 History release 24 hr Past Med/Surg History Medical History Breast cancer Depression Hearing deficit Hx of diabetes mellitus Hypertension Hypothyroid Morbid obesity Vertigo Surgical History History of cataract surgery Hx of appendectomy Hx of mastectomy (06/18/18) Family History Father No problems noted. Mother No problems noted. Sister Age: 89 Breast cancer Brother Heart disease Cardiac disorder Son Age: 69 Primary cancer of tonsil Heart disease Daughter Age: 64 Diabetes Denies family history of Ovarian cancer Prostate cancer Colorectal cancer Social History Smoking Status: Never smoker Second Hand Exposure: No; Hx Alcohol Use: No Hx Substance Use: No Preferred Language: Ivorian Communication Ability: Effective Visual Impairment: No Limitations Hearing Ability: Hard of Hearing Beliefs That Will Affect Care: None marital status: Current Living Situation: Spouse current occupational status: retired Feels Safe at Home: Yes Physical Activity Frequency: 1-2 Times per Week Seatbelt Use: always Assistive Devices: Walker Review of Systems Review of Systems: All systems reviewed are negative, apart from the ones contained in the history. Physical Exam Physical Exam: The patient is awake, alert and oriented 3, well developed and well nourished, normocephalic and atraumatic, lying in bed and in no acute distress. HEENT--PERRL, EOMI, mucous membranes and oropharynx mildly dry Neck--supple. No JVD. No bruits. Thyroid normal, trachea midline, no adenopathy. Heart--normal S1 and S2. No murmurs, rubs or gallops. Lungs--clear bilaterally, no respiratory distress, no accessory muscle use. Abdomen--normal bowel sounds and soft. Mild epigastric and left sided abdominal pain Extremities--no cyanosis or clubbing. No edema. Dermatologic--normal skin turgor, normal color, no abnormal lymph nodes, no rash. Neurologic--cranial nerves II through XII grossly intact. Rheumatologic--normal range of motion. Psychiatric--normal affect. Results & Data Results & Data ([facility]) Vital Signs (Past 12 Hours) Vital Signs Temp Pulse Pulse Resp BP BP Pulse Ox 05/04/22 09:19 78 18 153/76 H 99 05/04/22 08:49 84 L 05/04/22 08:26 82 18 161/75 H 94 05/04/22 07:52 79 18 176/81 H 94 05/04/22 07:24 90 05/04/22 07:12 97.9 F 91 H 20 198/112 H 94 O2 Del Method O2 Flow Rate 05/04/22 09:19 Nasal Cannula 2 05/04/22 08:49 Room Air 05/04/22 08:26 Room Air 05/04/22 07:52 Room Air 05/04/22 07:24 05/04/22 07:12 Room Air Code Status & VTE Plan VTE Prophylaxis Plan VTE Prophylaxis will be ordered: Yes PG Care Time/CCT Total # of Minutes Spent Total Time Spent with Patient: Total time spent is greater than 50% in coordination of care (as documented) at patient's floor/unit and/or counseling patient: Coding Level of Care Code 51468 INT INP/OBS CARE 3/75MIN Diagnoses Acute gastritis K29.00 Aspiration pneumonia J69.0 Elevated lactic acid level R79.89 Malignant neoplasm of upper-outer quadrant of right breast in female, estrogen receptor positive C50.411; Z17.0 Hypertension I10 Hypothyroidism E03.9 Type 2 diabetes mellitus E11.9 Nocturnal hypoxia G47.34 Time Spent (min) 75
[2022-05-04] MEDS ORDERED: GLUCOSE 40% GEL 15 GM TUBE PO PRN (10:59)
[2022-05-04] MEDS ORDERED: LEVOTHYROXINE SODIUM 150 MCG TABLET PO SCH (10:59)
[2022-05-04] MEDS ORDERED: ONDANSETRON INJ 2 MG/ML 2 ML VIAL IV PRN (10:59)
[2022-05-04] MEDS ORDERED: DEXTROSE 50% 50 ML SYRINGE IV PRN (10:59)
[2022-05-04] MEDS ORDERED: ACETAMINOPHEN 325 MG TAB PO PRN (10:59)
[2022-05-04] MEDS ORDERED: amLODIPine BESYLATE 5 MG TAB PO SCH (10:59)
[2022-05-04] MEDS ORDERED: CARBOHYDRATES FOR HYPOGLYCEMIA PO PRN (10:59)
[2022-05-04] MEDS ORDERED: GLUCAGON FOR INJ 1 MG VIAL SQ PRN (10:59)
[2022-05-04] MEDS ORDERED: GLUCOSE 10 TAB/TUBE PO PRN (10:59)
[2022-05-04] MEDS ORDERED: LEVOTHYROXINE SODIUM 100 MCG TABLET PO ONE (14:21)
[2022-05-04] MEDS: amLODIPine BESYLATE 5 MG TAB PO SCH (14:47)
[2022-05-04] MEDS: CEFEPIME 2,000 MG in SYRINGE 0 ML IV SCH (20:23)
[2022-05-05] MEDS ORDERED: FLUTICASONE PROPIONATE NA SPR 16 GM BTL STA (01:56)
[2022-05-05 06:21] LABS: Hematocrit (blood only) 39.7 % (37.0-47.0); Hemoglobin 13.1 g/dl (12.0-16.0); Mean Corpuscular Hemoglobin 30.8 pg (25.0-34.0); Mean Corpuscular Volume 93.4 fL (80.0-100.0); Mean Platelet Volume 9.3 fL (9.4-12.4); Platelet Count 164 K/uL (130-400); RDW Coefficient of Variation 14.3 % (11.5-14.5); RDW Standard Deviation 49.1 fL (36.4-46.3); Red Blood Count 4.25 M/uL (4.20-5.40); White Blood Count 6.73 K/ul (4.8-10.8)
[2022-05-05] MEDS ORDERED: LEVOTHYROXINE SODIUM 200 MCG TABLET PO SCH (06:30)
[2022-05-05] MEDS: amLODIPine BESYLATE 5 MG TAB PO SCH (07:31)
[2022-05-05] MEDS: CEFEPIME 2,000 MG in SYRINGE 0 ML IV SCH (07:31)
[2022-05-05 07:44] LABS: Calcium 9.2 mg/dl (8.5-10.1); Potassium 3.7 mmol/L (3.5-5.1)
[2022-05-05 07:50] LABS: Creatinine Clr Calc Pharmacy 61.7 ml/min; Est GFR (Non-African American) 67.3 ml/min
[2022-05-05] MEDS ORDERED: ANASTROZOLE 1 MG TAB PO SCH (09:00)
[2022-05-05 11:46] VITALS: BP 162/86; PULSE 71; TEMP 98.1; O2SAT 99
--- NOTE | 2022-05-05 12:55 | Discharge Summary ---
Date of Service May 05, 2022 Admission HPI Per Admitting Provider Is an 86-year-old female with a history of breast cancer, type 2 diabetes, hypothyroidism who was admitted to the hospital on account of nausea vomiting for couple of days. Most of the history was obtained from patient's family and also from ED physician, according to reports, patient started having nausea and vomiting after a few days of generalized weakness. She was brought to the hospital and upon arrival, was found to be hypoxic on 84%, although patient states she uses oxygen at home 2 L at night. Lactate was elevated 2.5 and chest x-ray was done that did not show any evidence of acute pathology. However on account of persistent nausea and vomiting and weakness, patient will be admitted to the hospital further management. Principal Diagnosis acute gastritis Discharge Exam The patient is awake, alert and oriented 3, well developed and well nourished, normocephalic and atraumatic, lying in bed and in no acute distress. HEENT--PERRL, EOMI, mucous membranes and oropharynx mildly dry Neck--supple. No JVD. No bruits. Thyroid normal, trachea midline, no adenopathy. Heart--normal S1 and S2. No murmurs, rubs or gallops. Lungs--clear bilaterally, no respiratory distress, no accessory muscle use. Abdomen--normal bowel sounds and soft. Mild epigastric and left sided abdominal pain Extremities--no cyanosis or clubbing. No edema. Dermatologic--normal skin turgor, normal color, no abnormal lymph nodes, no rash. Neurologic--cranial nerves II through XII grossly intact. Rheumatologic--normal range of motion. Psychiatric--normal affect. Discharge Data Allergies Allergy/AdvReac Type Severity Reaction Status Date / Time bacitracin Allergy Intermediate Hives Verified 05/04/22 09:20 [From Triple Antibiotic] hydrocodone Allergy Intermediate Hives Verified 05/04/22 09:20 neomycin Allergy Intermediate Hives Verified 05/04/22 09:20 [From Triple Antibiotic] polymyxin B Allergy Intermediate Hives Verified 05/04/22 09:20 [From Triple Antibiotic] rosuvastatin [From Crestor] Allergy Intermediate Hives Verified 05/04/22 09:20 tramadol Allergy Intermediate Hives Verified 05/04/22 09:20 amoxicillin Allergy Mild hives on Verified 05/04/22 09:20 tongue adhesive tape AdvReac Intermediate Rash Verified 05/04/22 09:20 blue dye AdvReac Intermediate Hives Verified 05/04/22 09:20 aspirin AdvReac Mild Gastrointestinal Verified 05/04/22 09:20 Upset acetaminophen AdvReac Verified 01/04/22 11:07 diclofenac [From Voltaren] AdvReac Verified 01/04/22 11:07 NSAIDS (Non-Steroidal AdvReac Verified 01/04/22 11:07 Anti-Inflamma Consultations 05/04/22 08:59 ED Decision to Admit Stat Hospital Course (1) Acute gastritis: Patient admitted on account of nausea and vomiting. Could be due to acute viral gastritis Now resolved Discharge home (2) Aspiration pneumonia: On account of vomiting, patient may have aspirated as well, will cover with broad-spectrum antibiotics Initial chest x-ray did not suggest, will follow-up chest x-ray Continue IV cefepime (3) Elevated lactic acid level: Most likely due to nausea vomiting and also metformin use Now resolved (4) Malignant neoplasm of upper-outer quadrant of right breast in female, estrogen receptor positive: We will continue home anastrozole (5) Hypertension: Blood pressures under fair control Continue home medications (6) Hypothyroidism: TSH is elevated, no evidence of myxedema We will give an extra dose of Synthroid, patient normally takes 150 mcg daily Given extra dose of 100 (7) Type 2 diabetes mellitus: Blood glucose under good control Hold metformin Insulin sliding scale (8) Nocturnal hypoxia: Was admitted with a saturation of 84%. Patient admits to using oxygen at night. Although patient has been vomiting, could be also due to aspiration pneumonia. Chest x-ray did not suggest any way Plan d/c home Total Time Total Time Spent Total Time Spent (In Minutes): 35 Discharge Plan Discharge Items Patient Disposition: Home - Self-Care Reason For Visit: NAUSEA AND VOMITING Discharge Diagnosis: acute gastritis Condition on Discharge: Fair Activity: Resume your previous activity Non-emergency contact: Primary Care Provider Call non-emergency contact if: you have any medication questions Follow-up/Referrals: Alice Monroy MD [Primary Care Provider] - 05/13/22 11:30 am Diet: Regular Addtl Attending Provider Instructions: please make appointment to follow up with your regular PCP Pending Studies at Discharge: No Stand-Alone Forms: My [facility], Smoking Cessation Medications and DC Order Prescriptions: Continued vitamin E (dl, acetate) 90 mg (200 unit) capsule 90 mg PO BID (DME) Oxygen Home Liters Per Minute See Rx Instructions .Route Qty: 1 0RF Rx Instructions: 2 L /NC nocturnal anastrozole 1 mg tablet 1 mg PO DAILY Qty: 90 3RF amlodipine 2.5 mg tablet 2.5 mg PO DAILY Qty: 90 3RF (DME) OneTouch Ultra Test Strip See Rx Instructions .Route Qty: 100 1RF Rx Instructions: As directed test once daily E11.9 cetirizine 10 mg tablet 10 mg PO DAILY Qty: 90 3RF Rx Instructions: THIS IS TO BE TAKEN ONLY ONCE DAILY !!! levothyroxine 150 mcg tablet 150 mcg PO DAILY Qty: 90 1RF (DME) blood-glucose meter [On Center SoftwareTouch Ultra2 Meter] Kit See Rx Instructions .Route Qty: 1 0RF Rx Instructions: As directed to check sugars daily (DME) lancets [On Center SoftwareTouch Delica Lancets] 30 gauge misc See Rx Instructions .Route Qty: 100 2RF Rx Instructions: As directed diphenhydramine HCl 25 mg Tablet 25 mg PO BID PRN (Reason: hives) Hold Instructions: alternative RX meclizine 25 mg Tablet 25 mg PO QAM metformin 500 mg tablet extended release 24 hr 1,000 mg PO BID Rx Instructions: 500 mg 2 tabs orally twice a day; Discharge Orders: Discharge Order (Routine); Ordered 05/05/22 Ordered By: Colten Pereira Admission Data Admit Date/Time: 05/04/22 09:17 Attending Provider: Colten Pereira Admit Provider: Colten Pereira Primary Care Provider: Alice Monroy V. Other Providers: Matthew Donato Other Interventions: Discharge Summary Assessment (RN) Last Done: 05/05/22 11:26 Coding Level of Care Code HOSP INP/OBS DISCH >30 MIN Diagnoses Acute gastritis K29.00 Aspiration pneumonia J69.0 Elevated lactic acid level R79.89 Malignant neoplasm of upper-outer quadrant of right breast in female, estrogen receptor positive C50.411; Z17.0 Hypertension I10 Hypothyroidism E03.9 Type 2 diabetes mellitus E11.9 Nocturnal hypoxia G47.34 Time Spent (min) 35
[2022-05-05] MEDS ORDERED: CEFEPIME 2,000 MG in SYRINGE 0 ML IV SCH (16:00)
--- NOTE | 2022-05-08 12:35 | Coding Query ---
To promote full compliance with coding requirements relating to patient care, provider participation is requested in all cases of surgical coder uncertainty. Please assist us with the question(s) below: Coding Question(s): The diagnosis below was documented in the ER, then subsequently fell off all further documentation. Please indicate if it is still a possible diagnosis or ruled out. Physician's Response(s): SEPSIS ( ) Diagnosed and POA. Please Specify further below, the most likely source of Sepsis: ( ) Possible Acute Viral Gastritis ( ) Possible Aspiration Pneumonia ( ) Other: Please Specify ( ) Unknown ( ) Diagnosed and not POA. Please Specify further below, the most likely source of Sepsis: ( ) Possible Acute Viral Gastritis ( ) Possible Aspiration Pneumonia ( ) Other: Please Specify ( ) Unknown ( ) Ruled out ( ) Other (please specify) MTDD
--- NOTE | 2022-05-08 13:03 | Coding Query ---
To promote full compliance with coding requirements relating to patient care, provider participation is requested in all cases of dry end operator uncertainty. Please assist us with the question(s) below: The diagnosis below was documented in the ER, then subsequently fell off all further documentation. Please indicate if it is still a possible diagnosis or ruled out. Physician's Response(s): SEPSIS ( ) Diagnosed and POA. Please Specify further below, the most likely source of Sepsis: ( x ) Possible Acute Viral Gastritis ( ) Possible Aspiration Pneumonia ( ) Other: Please Specify ( ) Unknown ( ) Diagnosed and not POA. Please Specify further below, the most likely source of Sepsis: ( x ) Possible Acute Viral Gastritis ( ) Possible Aspiration Pneumonia ( ) Other: Please Specify ( ) Unknown ( ) Ruled out ( ) Other (please specify) MTDD
--- NOTE | 2022-05-09 07:49 | Coding Query ---
PRESENT ON ADMISSION QUERY To promote full compliance with coding requirements relating to pateint care, physician participation is requested in all cases of middle card tender uncertainty. Please assist us with the question(s) below: Thank you so much for answering the previous query regarding Sepsis that was documented only in the ER, however, it is not clear, due to conflicting documentation of the POA status of Sepsis. Please place an X within the parenthesis (x). The following diagnosis listed in this patient's medical record on the ER and on the previous query, require physician assistance to determine if they were present on admission (POA) or not. Please advise for each diagnosis whether it was present on admission, not present on admission, or if it was clinically undetermined. 1. SEPSIS (x ) Present On Admission ( ) Not Present On Admission ( ) Clinically Undetermined Thank you Viviane Mcallister *Definition of the present on admission (POA)-Present on admission is defined as present at the time the order for inpatient admission occurs. Conditions that develop during an outpatient encounter prior to a written order for inpatient admission (including emergency department, observation, or outpatient surgery) are considered present on admission. FAMILIAD
== END 2022-05-05 12:48 | disposition home or self-care (01) | DRG 871 ==
LOC: ED 07:02 → 2W 09:17